=== PATIENT | female | born 1930 | race African-American/Black ===

== ENCOUNTER 2017-10-28 14:25 | Emergency (ER) | payer OTHER ==
[2017-10-28 14:54] LABS: ADD MAN DIFF? NO
[2017-10-28 15:15] LABS: WHITE BLOOD COUNT 9.9 10^3/ul (4.8-10.8)
[2017-10-28 15:15] LABS: ALANINE AMINOTRANSFERASE 33 IU/L (13-69); ALBUMIN 4.2 g/dl (3.3-4.9); ALBUMIN/GLOBULIN RATIO 1.27; ALKALINE PHOSPHATASE 82 IU/L (42-121); ANION GAP 18 (8-16); ASPARTATE AMINO TRANSFERASE 27 IU/L (15-46); BASOPHILS % 0.4 % (0.0-2.0); BILIRUBIN,INDIRECT 1.1 mg/dl (0-1.1); BILIRUBIN,TOTAL 1.1 mg/dl (0.2-1.3); BLOOD UREA NITROGEN 15 mg/dl (7-20); CALCIUM 10.3 mg/dl (8.4-10.2); CARBON DIOXIDE 27 mmol/L (21-31); CHLORIDE 104 mmol/L (97-110); CREATININE 0.93 mg/dl (0.44-1.00); GLUCOSE 155 mg/dl (70-220); HEMATOCRIT 40.7 % (37.0-47.0); HEMOGLOBIN 13.5 g/dl (12.0-16.0); LYMPHOCYTES # 0.9 10^3/ul (0.8-2.9); LYMPHOCYTES % 9.4 % (15.0-51.0); MEAN CORPUSCULAR HEMOGLOBIN 31.8 pg (29.0-33.0); MEAN CORPUSCULAR HGB CONC 33.2 g/dl (32.0-37.0); MEAN CORPUSCULAR VOLUME 95.8 fl (82.0-101.0); MEAN PLATELET VOLUME 12.3 fl (7.4-10.4); MONOCYTE # 0.6 10^3/ul (0.3-0.9); MONOCYTES % 6.2 % (0.0-11.0); NEUTROPHIL # 8.2 10^3/ul (1.6-7.5); NEUTROPHILS % 83.6 % (39.0-77.0); PLATELET COUNT 194 10^3/UL (140-415); POTASSIUM 4.1 mmol/L (3.5-5.1); RED BLOOD COUNT 4.25 10^6/ul (4.20-5.40); RED CELL DISTRIBUTION WIDTH 14.1 % (11.5-14.5); SODIUM 145 mmol/L (135-144); TOTAL PROTEIN 7.5 g/dl (6.1-8.1)
[2017-10-28 15:26] LABS: TROPONIN-I 0.039 ng/ml (0.00-0.12)
[2017-10-28 15:38] LABS: ACETAMINOPHEN < 10.0 ug/ml (10.0-30.0); ETHANOL < 10.0 mg/dl; SALICYLATE < 1.0 mg/dl (5.0-30.0)
[2017-10-28 18:30] LABS: ADD UMIC YES; UR ASCORBIC ACID NEGATIVE (NEGATIVE); UR BACTERIA MANY /HPF (NONE SEEN); UR BILIRUBIN (Dip) NEGATIVE (NEGATIVE); UR BLOOD (Dip) 2+ mg/dL (NEGATIVE); UR CLARITY CLOUDY (CLEAR); UR COLOR AMBER (YELLOW); UR GLUCOSE (Dip) NEGATIVE (NEGATIVE); UR KETONES (Dip) TRACE mg/dL (NEGATIVE); UR LEUKOCYTE ESTERASE (Dip) 3+ Leu/ul (NEGATIVE); UR MUCUS FEW /HPF (NONE SEEN); UR NITRITE (Dip) POSITIVE (NEGATIVE); UR NONSQUAMOUS EPITHELIAL CELL 1 /HPF (NONE SEEN); UR RBC 11 /HPF (0-5); UR SPECIFIC GRAVITY (Dip) 1.016 (1.003-1.030); UR SQUAMOUS EPITHELIAL CELL FEW /HPF (FEW); UR TOTAL PROTEIN (Dip) 1+ mg/dl (NEGATIVE); UR UROBILINOGEN (Dip) 2+ mg/dL (NEGATIVE); UR WBC 52 /HPF (0-5)
[2017-10-28 18:56] LABS: AMPHETAMINE/METHAMPHETAMINE Negative (NEGATIVE)
[2017-10-28 18:59] LABS: BARBITURATES Negative (NEGATIVE); BENZODIAZEPINES Negative (NEGATIVE); COCAINE Negative (NEGATIVE); OPIATES Negative (NEGATIVE)
[2017-10-28 19:16] LABS: CANNABINOIDS Negative (NEGATIVE)
[2017-10-28] MEDS ORDERED: LIDOCAINE 1% (MDV) 20 ML INJ (19:34)
[2017-10-28] MEDS: CEFTRIAXONE 1 GM INJ IM (19:36)
[2017-10-28] MEDS: CEFTRIAXONE 1 GM/50 ML (PMX) 50 ML IVPB (19:48)
== END 2017-10-28 19:50 | disposition short-term general hospital (02) ==
LOC: E/R 19:50
DX: N30.90 Cystitis, unspecified without hematuria (principal); I10 Essential (primary) hypertension; R40.2142 Coma scale, eyes open, spontaneous, at arrival to emergency department; R40.2242 Coma scale, best verbal response, confused conversation, at arrival to emergency department; R40.2362 Coma scale, best motor response, obeys commands, at arrival to emergency department
CPT/HCPCS: 36415; 70450; 71045; 80053; 80306; 80307; 81001; 82962; 84484; 85025; 87086; 93005; 96372; 99285-25

== ENCOUNTER 2018-10-29 16:15 | Emergency (ER) | payer OTHER ==
[2018-10-29] MEDS: ACETAMINOPHEN 500 MG TAB PO (16:29)
[2018-10-29 16:39] LABS: ADD MAN DIFF? NO
[2018-10-29 16:42] LABS: BASOPHILS % 0.8 % (0.0-2.0); EOSINOPHILS # 0.1 10^3/ul (0.0-0.5); EOSINOPHILS % 1.4 % (0.0-7.0); HEMATOCRIT 40.9 % (37.0-47.0); HEMOGLOBIN 13.2 g/dl (12.0-16.0); LYMPHOCYTES # 1.7 10^3/ul (0.8-2.9); LYMPHOCYTES % 33.8 % (15.0-51.0); MEAN CORPUSCULAR HGB CONC 32.3 g/dl (32.0-37.0); MEAN PLATELET VOLUME 11.1 fl (7.4-10.4); MONOCYTE # 0.6 10^3/ul (0.3-0.9); MONOCYTES % 11.7 % (0.0-11.0); NEUTROPHIL # 2.5 10^3/ul (1.6-7.5); NEUTROPHILS % 52.1 % (39.0-77.0); PLATELET COUNT 186 10^3/UL (140-415); RED BLOOD COUNT 4.26 10^6/ul (4.20-5.40); RED CELL DISTRIBUTION WIDTH 14.9 % (11.5-14.5)
[2018-10-29 16:42] LABS: WHITE BLOOD COUNT 4.9 10^3/ul (4.8-10.8)
[2018-10-29 16:58] LABS: ANION GAP 10 (5-13); BLOOD UREA NITROGEN 17 mg/dl (7-20); CALCIUM 10.3 mg/dl (8.4-10.2); CARBON DIOXIDE 29 mmol/L (21-31); CHLORIDE 105 mmol/L (97-110); CREATININE 0.94 mg/dl (0.44-1.00); GLUCOSE 83 mg/dl (70-220); POTASSIUM 4.5 mmol/L (3.5-5.1); SODIUM 144 mmol/L (135-144)
== END 2018-10-29 20:00 | disposition home or self-care (01) ==
LOC: E/R 16:15
DX: R51 Headache (principal); R40.2142 Coma scale, eyes open, spontaneous, at arrival to emergency department; R40.2362 Coma scale, best motor response, obeys commands, at arrival to emergency department; R40.2252 Coma scale, best verbal response, oriented, at arrival to emergency department; I10 Essential (primary) hypertension
CPT/HCPCS: 70450; 80048; 85025; 99284-25

== ENCOUNTER 2018-12-13 22:53 | Inpatient (IN) | payer OTHER ==
[2018-12-13] MEDS: SOD CHLORIDE 0.9% 500 ML IV (23:12)
[2018-12-13] MEDS: morphine 4 MG/ML VIAL IV (23:13)
[2018-12-13] MEDS: ONDANSETRON 4 MG INJ IV (23:13)
[2018-12-13 23:19] LABS: ADD MAN DIFF? NO
[2018-12-13 23:22] LABS: BASOPHILS % 0.4 % (0.0-2.0); EOSINOPHILS # 0.1 10^3/ul (0.0-0.5); EOSINOPHILS % 1.4 % (0.0-7.0); HEMATOCRIT 37.3 % (37.0-47.0); HEMOGLOBIN 11.9 g/dl (12.0-16.0); LYMPHOCYTES # 2.2 10^3/ul (0.8-2.9); LYMPHOCYTES % 30.2 % (15.0-51.0); MEAN CORPUSCULAR HEMOGLOBIN 30.7 pg (29.0-33.0); MEAN CORPUSCULAR HGB CONC 31.9 g/dl (32.0-37.0); MEAN CORPUSCULAR VOLUME 96.4 fl (82.0-101.0); MEAN PLATELET VOLUME 11.1 fl (7.4-10.4); MONOCYTE # 0.6 10^3/ul (0.3-0.9); MONOCYTES % 7.9 % (0.0-11.0); NEUTROPHIL # 4.3 10^3/ul (1.6-7.5); NEUTROPHILS % 59.3 % (39.0-77.0); PLATELET COUNT 175 10^3/UL (140-415); RED BLOOD COUNT 3.87 10^6/ul (4.20-5.40); RED CELL DISTRIBUTION WIDTH 15.6 % (11.5-14.5)
[2018-12-13 23:22] LABS: WHITE BLOOD COUNT 7.2 10^3/ul (4.8-10.8)
[2018-12-13 23:40] LABS: ALANINE AMINOTRANSFERASE 27 IU/L (13-69); ALBUMIN 3.8 g/dl (3.3-4.9); ALBUMIN/GLOBULIN RATIO 1.18; ALKALINE PHOSPHATASE 76 IU/L (42-121); ANION GAP 10 (5-13); ASPARTATE AMINO TRANSFERASE 24 IU/L (15-46); BILIRUBIN,INDIRECT 0.5 mg/dl (0-1.1); BILIRUBIN,TOTAL 0.5 mg/dl (0.2-1.3); BLOOD UREA NITROGEN 14 mg/dl (7-20); CALCIUM 9.8 mg/dl (8.4-10.2); CARBON DIOXIDE 29 mmol/L (21-31); CHLORIDE 105 mmol/L (97-110); CREATININE 0.77 mg/dl (0.44-1.00); GLUCOSE 111 mg/dl (70-220); LIPASE 75 U/L (23-300); POTASSIUM 3.8 mmol/L (3.5-5.1); SODIUM 144 mmol/L (135-144)
[2018-12-13 23:41] LABS: INR 0.98; PARTIAL THROMBOPLASTIN TIME 30.7 Sec (23.0-35.0); PROTIME 13.1 Sec (11.9-14.9)
[2018-12-14] MEDS: HYDROmorphONE 0.5 MG/0.5 ML SYG IV (00:12)
[2018-12-14] MEDS ORDERED: HYDROCODONE/APAP (5/325) TAB PO (05:00)
[2018-12-14] MEDS ORDERED: NACL 0.9% 3 ML SYG IV (05:00)
[2018-12-14] MEDS ORDERED: ACETAMINOPHEN 325 MG TAB PO (05:00)
[2018-12-14] MEDS ORDERED: ALBUTEROL/IPRATROPIUM (NEB) 3 ML AMP HHN (05:00)
[2018-12-14] MEDS ORDERED: ONDANSETRON 4 MG INJ IV (05:00)
[2018-12-14] MEDS: HYDROCODONE/APAP (5/325) TAB PO (07:46)
[2018-12-14] MEDS: HEPARIN 5,000 UNIT/1 ML VIAL SC ×2 (09:15→20:43)
[2018-12-14] MEDS ORDERED: HYDROmorphONE 0.5 MG/0.5 ML SYG IV (09:30)
[2018-12-14] MEDS: hydrALAzine 20 MG INJ IV (14:31)
[2018-12-14] MEDS: KETOROLAC 15 MG INJ IV ×2 (15:15→22:34)
[2018-12-14] MEDS ORDERED: ALPRAZOLAM 0.25 MG TAB PO (16:30)
[2018-12-14 22:04] LABS: CREATINE KINASE 65 IU/L (23-200)
[2018-12-14 22:18] LABS: CK INDEX 1.8; CK-MB 1.16 ng/ml (0.0-2.4); TROPONIN-I 0.025 ng/ml (0.000-0.120)
[2018-12-14] MEDS: ATORVASTATIN 20 MG TAB PO (22:34)
[2018-12-14] MEDS: DONEPEZIL 10 MG TAB PO (22:34)
[2018-12-14] MEDS: AMLODIPINE 5 MG TAB PO (22:34)
[2018-12-15 05:40] LABS: ADD MAN DIFF? NO
[2018-12-15 05:48] LABS: BASOPHIL # 0.1 10^3/ul (0.0-0.1); BASOPHILS % 0.8 % (0.0-2.0); EOSINOPHILS # 0.3 10^3/ul (0.0-0.5); HEMATOCRIT 37.8 % (37.0-47.0); HEMOGLOBIN 12.6 g/dl (12.0-16.0); LYMPHOCYTES # 1.3 10^3/ul (0.8-2.9); LYMPHOCYTES % 20.2 % (15.0-51.0); MEAN CORPUSCULAR HEMOGLOBIN 31.1 pg (29.0-33.0); MEAN CORPUSCULAR HGB CONC 33.3 g/dl (32.0-37.0); MEAN CORPUSCULAR VOLUME 93.3 fl (82.0-101.0); MEAN PLATELET VOLUME 11.3 fl (7.4-10.4); MONOCYTE # 0.7 10^3/ul (0.3-0.9); MONOCYTES % 11.4 % (0.0-11.0); NEUTROPHILS % 63.1 % (39.0-77.0); PLATELET COUNT 172 10^3/UL (140-415); RED BLOOD COUNT 4.05 10^6/ul (4.20-5.40); RED CELL DISTRIBUTION WIDTH 15.3 % (11.5-14.5)
[2018-12-15 05:48] LABS: WHITE BLOOD COUNT 6.3 10^3/ul (4.8-10.8)
[2018-12-15 06:22] LABS: ALANINE AMINOTRANSFERASE 23 IU/L (13-69); ALBUMIN 3.1 g/dl (3.3-4.9); ALBUMIN/GLOBULIN RATIO 1.03; ALKALINE PHOSPHATASE 62 IU/L (42-121); ANION GAP 5 (5-13); ASPARTATE AMINO TRANSFERASE 20 IU/L (15-46); BILIRUBIN,INDIRECT 1.8 mg/dl (0-1.1); BILIRUBIN,TOTAL 1.8 mg/dl (0.2-1.3); BLOOD UREA NITROGEN 21 mg/dl (7-20); CALCIUM 9.5 mg/dl (8.4-10.2); CARBON DIOXIDE 29 mmol/L (21-31); CHLORIDE 104 mmol/L (97-110); GLUCOSE 87 mg/dl (70-220); PHOSPHORUS 3.2 mg/dl (2.5-4.9); POTASSIUM 4.2 mmol/L (3.5-5.1); SODIUM 138 mmol/L (135-144); TOTAL PROTEIN 6.1 g/dl (6.1-8.1)
[2018-12-15] MEDS: HEPARIN 5,000 UNIT/1 ML VIAL SC ×2 (08:40→20:31)
[2018-12-15] MEDS: DONEPEZIL 10 MG TAB PO (08:41)
[2018-12-15] MEDS: AMLODIPINE 5 MG TAB PO (08:42)
[2018-12-15] MEDS: KETOROLAC 15 MG INJ IV (08:49)
[2018-12-15] MEDS ORDERED: DIVALPROEX SPRINKLE 125 MG CAP PO (12:00)
[2018-12-15] MEDS ORDERED: QUETIAPINE 25 MG TAB PO (15:00)
[2018-12-15] MEDS: DIVALPROEX SPRINKLE 125 MG CAP PO (20:26)
[2018-12-15] MEDS: ATORVASTATIN 20 MG TAB PO (20:26)
[2018-12-15] MEDS: OLANZAPINE 5 MG TAB PO (20:26)
[2018-12-15] MEDS: QUETIAPINE 25 MG TAB PO (20:26)
[2018-12-16 06:01] LABS: ADD MAN DIFF? NO
[2018-12-16 06:07] LABS: BASOPHIL # 0.1 10^3/ul (0.0-0.1); BASOPHILS % 0.6 % (0.0-2.0); EOSINOPHILS # 0.3 10^3/ul (0.0-0.5); EOSINOPHILS % 3.3 % (0.0-7.0); HEMATOCRIT 37.5 % (37.0-47.0); HEMOGLOBIN 12.6 g/dl (12.0-16.0); LYMPHOCYTES # 1.7 10^3/ul (0.8-2.9); LYMPHOCYTES % 21.6 % (15.0-51.0); MEAN CORPUSCULAR HEMOGLOBIN 30.5 pg (29.0-33.0); MEAN CORPUSCULAR HGB CONC 33.6 g/dl (32.0-37.0); MEAN CORPUSCULAR VOLUME 90.8 fl (82.0-101.0); MEAN PLATELET VOLUME 11.6 fl (7.4-10.4); MONOCYTES % 12.7 % (0.0-11.0); NEUTROPHIL # 4.9 10^3/ul (1.6-7.5); NEUTROPHILS % 61.4 % (39.0-77.0); PLATELET COUNT 185 10^3/UL (140-415); RED BLOOD COUNT 4.13 10^6/ul (4.20-5.40); RED CELL DISTRIBUTION WIDTH 15.2 % (11.5-14.5)
[2018-12-16 06:21] LABS: ANION GAP 8 (5-13); BLOOD UREA NITROGEN 23 mg/dl (7-20); CALCIUM 9.1 mg/dl (8.4-10.2); CARBON DIOXIDE 26 mmol/L (21-31); CHLORIDE 106 mmol/L (97-110); CREATININE 0.97 mg/dl (0.44-1.00); GLUCOSE 87 mg/dl (70-220); POTASSIUM 4.1 mmol/L (3.5-5.1); SODIUM 140 mmol/L (135-144)
[2018-12-16] MEDS: AMLODIPINE 5 MG TAB PO (08:21)
[2018-12-16] MEDS: DONEPEZIL 10 MG TAB PO (08:21)
[2018-12-16] MEDS: HEPARIN 5,000 UNIT/1 ML VIAL SC ×2 (08:24→20:44)
[2018-12-16] MEDS ORDERED: traMADol 50 MG TAB PO (09:30)
[2018-12-16] MEDS: CHOLECALCIFEROL 2,000 UNIT CAP PO (15:40)
[2018-12-16 19:00] LABS: ADD UMIC NO; UR ASCORBIC ACID 20 mg/dL (NEGATIVE); UR BILIRUBIN (Dip) NEGATIVE (NEGATIVE); UR BLOOD (Dip) NEGATIVE (NEGATIVE); UR CLARITY CLEAR (CLEAR); UR COLOR YELLOW (YELLOW); UR GLUCOSE (Dip) NEGATIVE (NEGATIVE); UR KETONES (Dip) NEGATIVE (NEGATIVE); UR LEUKOCYTE ESTERASE (Dip) NEGATIVE Leu/ul (NEGATIVE); UR NITRITE (Dip) NEGATIVE (NEGATIVE); UR SPECIFIC GRAVITY (Dip) 1.014 (1.003-1.030); UR TOTAL PROTEIN (Dip) NEGATIVE (NEGATIVE); UR UROBILINOGEN (Dip) 2+ mg/dL (NEGATIVE)
[2018-12-16] MEDS: DIVALPROEX SPRINKLE 125 MG CAP PO (20:39)
[2018-12-16] MEDS: QUETIAPINE 25 MG TAB PO (20:39)
[2018-12-16] MEDS: ATORVASTATIN 20 MG TAB PO (20:41)
[2018-12-16] MEDS: OLANZAPINE 5 MG TAB PO (20:41)
[2018-12-17] MEDS: CHOLECALCIFEROL 2,000 UNIT CAP PO (10:57)
[2018-12-17] MEDS: AMLODIPINE 5 MG TAB PO (10:57)
[2018-12-17] MEDS: DONEPEZIL 10 MG TAB PO (10:58)
[2018-12-17] MEDS: HEPARIN 5,000 UNIT/1 ML VIAL SC ×3 (10:59→23:10)
[2018-12-17] MEDS: morphine 2 MG INJ IV (16:55)
[2018-12-17] MEDS: DIVALPROEX SPRINKLE 125 MG CAP PO (22:18)
[2018-12-17] MEDS: QUETIAPINE 25 MG TAB PO (22:18)
[2018-12-17] MEDS: OLANZAPINE 5 MG TAB PO (22:18)
[2018-12-17] MEDS: ATORVASTATIN 20 MG TAB PO (22:18)
[2018-12-18 06:49] LABS: ANION GAP 7 (5-13); BLOOD UREA NITROGEN 16 mg/dl (7-20); CALCIUM 9.4 mg/dl (8.4-10.2); CARBON DIOXIDE 25 mmol/L (21-31); CHLORIDE 107 mmol/L (97-110); GLUCOSE 87 mg/dl (70-220); MAGNESIUM 2.3 mg/dl (1.7-2.5); POTASSIUM 4.4 mmol/L (3.5-5.1); SODIUM 139 mmol/L (135-144)
[2018-12-18] MEDS: HALOPERIDOL 5 MG INJ IV (07:44)
[2018-12-18] MEDS: HEPARIN 5,000 UNIT/1 ML VIAL SC (07:46)
[2018-12-18] MEDS: DONEPEZIL 10 MG TAB PO (10:27)
[2018-12-18] MEDS: AMLODIPINE 5 MG TAB PO (10:29)
[2018-12-18] MEDS: CHOLECALCIFEROL 2,000 UNIT CAP PO (10:30)
[2018-12-18 10:46] LABS: ADD MAN DIFF? NO
[2018-12-18 10:54] LABS: WHITE BLOOD COUNT 7.1 10^3/ul (4.8-10.8)
[2018-12-18 10:54] LABS: BASOPHIL # 0.1 10^3/ul (0.0-0.1); BASOPHILS % 0.7 % (0.0-2.0); EOSINOPHILS # 0.1 10^3/ul (0.0-0.5); EOSINOPHILS % 1.8 % (0.0-7.0); HEMATOCRIT 36.7 % (37.0-47.0); HEMOGLOBIN 12.2 g/dl (12.0-16.0); LYMPHOCYTES # 1.4 10^3/ul (0.8-2.9); LYMPHOCYTES % 19.9 % (15.0-51.0); MEAN CORPUSCULAR HGB CONC 33.2 g/dl (32.0-37.0); MEAN CORPUSCULAR VOLUME 93.4 fl (82.0-101.0); MEAN PLATELET VOLUME 10.6 fl (7.4-10.4); MONOCYTE # 1.2 10^3/ul (0.3-0.9); MONOCYTES % 16.7 % (0.0-11.0); NEUTROPHIL # 4.3 10^3/ul (1.6-7.5); NEUTROPHILS % 60.5 % (39.0-77.0); PLATELET COUNT 263 10^3/UL (140-415); RED BLOOD COUNT 3.93 10^6/ul (4.20-5.40); RED CELL DISTRIBUTION WIDTH 14.8 % (11.5-14.5)
[2018-12-18 11:18] LABS: ANION GAP 7 (5-13); BLOOD UREA NITROGEN 15 mg/dl (7-20); CALCIUM 9.7 mg/dl (8.4-10.2); CARBON DIOXIDE 27 mmol/L (21-31); CHLORIDE 106 mmol/L (97-110); CREATININE 0.86 mg/dl (0.44-1.00); GLUCOSE 89 mg/dl (70-220); POTASSIUM 4.5 mmol/L (3.5-5.1); SODIUM 140 mmol/L (135-144)
[2018-12-18] MEDS: morphine 2 MG INJ IV (17:11)
[2018-12-18] MEDS: OLANZAPINE 5 MG TAB PO (21:36)
[2018-12-18] MEDS: ATORVASTATIN 20 MG TAB PO (21:36)
[2018-12-18] MEDS: DIVALPROEX SPRINKLE 125 MG CAP PO (21:37)
[2018-12-18] MEDS: QUETIAPINE 25 MG TAB PO (21:37)
[2018-12-19] MEDS: DONEPEZIL 10 MG TAB PO (09:00)
[2018-12-19] MEDS: AMLODIPINE 5 MG TAB PO (09:00)
[2018-12-19] MEDS: CHOLECALCIFEROL 2,000 UNIT CAP PO (09:00)
[2018-12-19] MEDS: morphine 2 MG INJ IV (12:01)
[2018-12-19] MEDS ORDERED: METOCLOPRAMIDE 10 MG INJ (15:47)
[2018-12-19] MEDS ORDERED: CEFAZOLIN 1 GM INJ ×2 (15:47→16:56)
[2018-12-19] MEDS ORDERED: morphine SULFATE/PF (10 MG/10 ML) INJ (15:47)
[2018-12-19] MEDS ORDERED: ONDANSETRON 4 MG INJ (15:47)
[2018-12-19] MEDS ORDERED: ROPIVACAINE 0.5 % 30 ML VIAL (15:48)
[2018-12-19] MEDS ORDERED: FENTAnyl 50 MCG/ML VIAL (15:49)
[2018-12-19] MEDS ORDERED: ETOMIDATE 20 MG INJ (16:28)
[2018-12-19] MEDS ORDERED: PROPOFOL 20 ML (16:55)
[2018-12-19] MEDS ORDERED: PHENYLephrine (100 MCG/ML) 5ML SYG (16:56)
[2018-12-19] MEDS ORDERED: EPHEDrine 50 MG INJ (16:56)
[2018-12-19] MEDS: POLYMYXIN/BACITRACIN 1L IRRIG (17:08)
[2018-12-19] MEDS ORDERED: morphine 4 MG/ML VIAL IV (19:00)
[2018-12-19] MEDS ORDERED: HYDROCODONE/APAP (5/325) TAB PO (19:00)
[2018-12-19] MEDS ORDERED: EPHEDrine SULFATE 50 MG/5 ML SYG IV (19:00)
[2018-12-19] MEDS ORDERED: FENTAnyl 50 MCG/ML VIAL IV ×3 (19:00)
[2018-12-19] MEDS ORDERED: ONDANSETRON 4 MG INJ IV (19:00)
[2018-12-19] MEDS ORDERED: HYDROmorphONE 1 MG/5 ML IV SYRINGE IV ×3 (19:00→19:05)
[2018-12-19] MEDS ORDERED: MEPERIDINE 25 MG INJ IV (19:00)
[2018-12-19] MEDS ORDERED: LABETALOL HCL 20MG INJ IV (19:00)
[2018-12-19] MEDS ORDERED: NACL 0.9% 3 ML SYG IV (19:00)
[2018-12-19] MEDS ORDERED: hydrALAzine 20 MG INJ IV (19:00)
[2018-12-19] MEDS: HYDROmorphONE 1 MG/5 ML IV SYRINGE IV (19:14)
[2018-12-19 19:30] LABS: ADD MAN DIFF? NO
[2018-12-19 19:31] LABS: WHITE BLOOD COUNT 10.3 10^3/ul (4.8-10.8)
[2018-12-19 19:31] LABS: BASOPHIL # 0.1 10^3/ul (0.0-0.1); BASOPHILS % 0.5 % (0.0-2.0); EOSINOPHILS # 0.1 10^3/ul (0.0-0.5); EOSINOPHILS % 0.8 % (0.0-7.0); HEMATOCRIT 39.1 % (37.0-47.0); HEMOGLOBIN 12.5 g/dl (12.0-16.0); LYMPHOCYTES # 1.5 10^3/ul (0.8-2.9); LYMPHOCYTES % 14.8 % (15.0-51.0); MEAN CORPUSCULAR HEMOGLOBIN 30.5 pg (29.0-33.0); MEAN CORPUSCULAR VOLUME 95.4 fl (82.0-101.0); MEAN PLATELET VOLUME 10.2 fl (7.4-10.4); MONOCYTE # 1.2 10^3/ul (0.3-0.9); NEUTROPHIL # 7.3 10^3/ul (1.6-7.5); PLATELET COUNT 285 10^3/UL (140-415); RED CELL DISTRIBUTION WIDTH 14.7 % (11.5-14.5)
[2018-12-19 19:48] LABS: ANION GAP 12 (5-13); BLOOD UREA NITROGEN 18 mg/dl (7-20); CALCIUM 9.6 mg/dl (8.4-10.2); CARBON DIOXIDE 26 mmol/L (21-31); CHLORIDE 106 mmol/L (97-110); CREATININE 0.96 mg/dl (0.44-1.00); GLUCOSE 116 mg/dl (70-220); POTASSIUM 4.4 mmol/L (3.5-5.1); SODIUM 144 mmol/L (135-144)
[2018-12-19] MEDS: SOD CHLORIDE 0.9% 1,000 ML IV (20:53)
[2018-12-19] MEDS: ATORVASTATIN 20 MG TAB PO (21:42)
[2018-12-19] MEDS: QUETIAPINE 25 MG TAB PO (21:43)
[2018-12-19] MEDS: DIVALPROEX SPRINKLE 125 MG CAP PO (21:43)
[2018-12-19] MEDS: OLANZAPINE 5 MG TAB PO (21:43)
[2018-12-19] MEDS: CEFAZOLIN 2 GM/50 ML (PMX) 50 ML IVPB (21:47)
[2018-12-20] MEDS: CEFAZOLIN 2 GM/50 ML (PMX) 50 ML IVPB ×2 (05:31→13:50)
[2018-12-20 06:16] LABS: ADD MAN DIFF? NO
[2018-12-20 06:27] LABS: BASOPHILS % 0.2 % (0.0-2.0); EOSINOPHILS % 0.1 % (0.0-7.0); HEMATOCRIT 32.1 % (37.0-47.0); HEMOGLOBIN 10.3 g/dl (12.0-16.0); LYMPHOCYTES # 0.6 10^3/ul (0.8-2.9); LYMPHOCYTES % 6.4 % (15.0-51.0); MEAN CORPUSCULAR HEMOGLOBIN 30.7 pg (29.0-33.0); MEAN CORPUSCULAR HGB CONC 32.1 g/dl (32.0-37.0); MEAN CORPUSCULAR VOLUME 95.8 fl (82.0-101.0); MEAN PLATELET VOLUME 10.9 fl (7.4-10.4); MONOCYTE # 1.5 10^3/ul (0.3-0.9); MONOCYTES % 14.4 % (0.0-11.0); NEUTROPHIL # 7.9 10^3/ul (1.6-7.5); NEUTROPHILS % 78.1 % (39.0-77.0); PLATELET COUNT 222 10^3/UL (140-415); RED BLOOD COUNT 3.35 10^6/ul (4.20-5.40); RED CELL DISTRIBUTION WIDTH 14.9 % (11.5-14.5)
[2018-12-20 06:27] LABS: WHITE BLOOD COUNT 10.1 10^3/ul (4.8-10.8)
[2018-12-20 06:49] LABS: ANION GAP 6 (5-13); BLOOD UREA NITROGEN 20 mg/dl (7-20); CALCIUM 8.9 mg/dl (8.4-10.2); CARBON DIOXIDE 23 mmol/L (21-31); CHLORIDE 112 mmol/L (97-110); CREATININE 0.87 mg/dl (0.44-1.00); GLUCOSE 116 mg/dl (70-220); POTASSIUM 4.7 mmol/L (3.5-5.1); SODIUM 141 mmol/L (135-144)
[2018-12-20] MEDS: SOD CHLORIDE 0.9% 1,000 ML IV ×3 (07:04→19:34)
[2018-12-20] MEDS: DONEPEZIL 10 MG TAB PO ×2 (09:00→09:08)
[2018-12-20] MEDS: CHOLECALCIFEROL 2,000 UNIT CAP PO ×2 (09:00→09:08)
[2018-12-20] MEDS: AMLODIPINE 5 MG TAB PO ×2 (09:00→09:09)
[2018-12-20] MEDS: ENOXAPARIN 40 MG/0.4 ML SYG SC (13:56)
[2018-12-20] MEDS: ATORVASTATIN 20 MG TAB PO (20:11)
[2018-12-20] MEDS: DIVALPROEX SPRINKLE 125 MG CAP PO (20:11)
[2018-12-20] MEDS: QUETIAPINE 25 MG TAB PO (20:11)
[2018-12-20] MEDS: OLANZAPINE 5 MG TAB PO (20:17)
[2018-12-21 05:56] LABS: ADD MAN DIFF? NO
[2018-12-21 06:08] LABS: ABNORMAL IP MESSAGE 1; BASOPHIL # 0.1 10^3/ul (0.0-0.1); BASOPHILS % 0.4 % (0.0-2.0); EOSINOPHILS % 0.1 % (0.0-7.0); HEMATOCRIT 32.3 % (37.0-47.0); HEMOGLOBIN 10.4 g/dl (12.0-16.0); LYMPHOCYTES # 1.1 10^3/ul (0.8-2.9); LYMPHOCYTES % 6.3 % (15.0-51.0); MEAN CORPUSCULAR HEMOGLOBIN 30.7 pg (29.0-33.0); MEAN CORPUSCULAR HGB CONC 32.2 g/dl (32.0-37.0); MEAN CORPUSCULAR VOLUME 95.3 fl (82.0-101.0); MEAN PLATELET VOLUME 10.6 fl (7.4-10.4); MONOCYTE # 2.4 10^3/ul (0.3-0.9); NEUTROPHIL # 13.5 10^3/ul (1.6-7.5); NEUTROPHILS % 78.3 % (39.0-77.0); PLATELET COUNT 273 10^3/UL (140-415); RED BLOOD COUNT 3.39 10^6/ul (4.20-5.40)
[2018-12-21 06:08] LABS: WHITE BLOOD COUNT 17.2 10^3/ul (4.8-10.8)
[2018-12-21 06:23] LABS: POSITIVE DIFF @See below
[2018-12-21 06:29] LABS: ANION GAP 7 (5-13); BLOOD UREA NITROGEN 13 mg/dl (7-20); CALCIUM 9.2 mg/dl (8.4-10.2); CARBON DIOXIDE 25 mmol/L (21-31); CHLORIDE 113 mmol/L (97-110); CREATININE 0.86 mg/dl (0.44-1.00); GLUCOSE 95 mg/dl (70-220); POTASSIUM 4.1 mmol/L (3.5-5.1); SODIUM 145 mmol/L (135-144)
[2018-12-21] MEDS: SOD CHLORIDE 0.9% 1,000 ML IV ×3 (08:40→22:39)
[2018-12-21] MEDS: AMLODIPINE 5 MG TAB PO (08:41)
[2018-12-21] MEDS: DONEPEZIL 10 MG TAB PO (08:41)
[2018-12-21] MEDS: CHOLECALCIFEROL 2,000 UNIT CAP PO (08:41)
[2018-12-21] MEDS: ENOXAPARIN 40 MG/0.4 ML SYG SC (08:44)
[2018-12-21] MEDS: CEFAZOLIN 1 GM/50 ML (PMX) 50 ML IVPB ×2 (12:48→20:23)
[2018-12-21] MEDS: QUETIAPINE 25 MG TAB PO (20:24)
[2018-12-21] MEDS: OLANZAPINE 5 MG TAB PO (20:24)
[2018-12-21] MEDS: ATORVASTATIN 20 MG TAB PO (20:24)
[2018-12-21] MEDS: DIVALPROEX SPRINKLE 125 MG CAP PO (20:24)
[2018-12-22 05:35] LABS: ADD MAN DIFF? NO
[2018-12-22 05:40] LABS: ABNORMAL IP MESSAGE 1; BASOPHIL # 0.1 10^3/ul (0.0-0.1); BASOPHILS % 0.3 % (0.0-2.0); EOSINOPHILS # 0.1 10^3/ul (0.0-0.5); EOSINOPHILS % 0.5 % (0.0-7.0); HEMATOCRIT 29.5 % (37.0-47.0); HEMOGLOBIN 9.4 g/dl (12.0-16.0); LYMPHOCYTES # 1.8 10^3/ul (0.8-2.9); LYMPHOCYTES % 10.7 % (15.0-51.0); MEAN CORPUSCULAR HEMOGLOBIN 30.4 pg (29.0-33.0); MEAN CORPUSCULAR HGB CONC 31.9 g/dl (32.0-37.0); MEAN CORPUSCULAR VOLUME 95.5 fl (82.0-101.0); MEAN PLATELET VOLUME 10.5 fl (7.4-10.4); MONOCYTE # 1.6 10^3/ul (0.3-0.9); MONOCYTES % 9.8 % (0.0-11.0); NEUTROPHIL # 12.7 10^3/ul (1.6-7.5); NEUTROPHILS % 77.8 % (39.0-77.0); PLATELET COUNT 310 10^3/UL (140-415); RED BLOOD COUNT 3.09 10^6/ul (4.20-5.40); RED CELL DISTRIBUTION WIDTH 14.8 % (11.5-14.5)
[2018-12-22 05:40] LABS: WHITE BLOOD COUNT 16.4 10^3/ul (4.8-10.8)
[2018-12-22 06:15] LABS: POSITIVE DIFF @See below
[2018-12-22] MEDS: CEFAZOLIN 1 GM/50 ML (PMX) 50 ML IVPB (09:20)
[2018-12-22] MEDS: DONEPEZIL 10 MG TAB PO (09:21)
[2018-12-22] MEDS: CHOLECALCIFEROL 2,000 UNIT CAP PO (09:21)
[2018-12-22] MEDS: AMLODIPINE 5 MG TAB PO (09:21)
[2018-12-22] MEDS: ENOXAPARIN 40 MG/0.4 ML SYG SC (09:25)
[2018-12-22] MEDS ORDERED: CEFAZOLIN 1 GM/50 ML (PMX) 50 ML IVPB (21:00)
== END 2018-12-22 18:35 | DRG 470 ==
LOC: E/R 22:53 → 2NE 12-14 02:06
PROC: 0SRS0JZ Replacement of Left Hip Joint, Femoral Surface with Synthetic Substitute, Open Approach (ICD-10-PCS; principal; 2018-12-19 16:00)
DX: S72.002A Fracture of unspecified part of neck of left femur, initial encounter for closed fracture (principal); N17.9 Acute kidney failure, unspecified; F02.81 Dementia in other diseases classified elsewhere, unspecified severity, with behavioral disturbance; F05 Delirium due to known physiological condition; J98.11 Atelectasis; W01.0XXA Fall on same level from slipping, tripping and stumbling without subsequent striking against object, initial encounter; E78.5 Hyperlipidemia, unspecified; I10 Essential (primary) hypertension; I27.20 Pulmonary hypertension, unspecified; I70.0 Atherosclerosis of aorta; I65.29 Occlusion and stenosis of unspecified carotid artery; E55.9 Vitamin D deficiency, unspecified; Z86.73 Personal history of transient ischemic attack (TIA), and cerebral infarction without residual deficits; M15.9 Polyosteoarthritis, unspecified; D72.829 Elevated white blood cell count, unspecified
CPT/HCPCS: 36415; 70450; 71045; 72170; 72192; 73500; 73510; 80048; 80053; 81003; 82550; 82553; 82652; 83690; 83735; 84100; 84484; 85025; 85610; 85730; 86850; 86870; 86900; 86901; 86920; 87081; 88305; 88311; 93005; 93306; 96374; 96375; 97110; 97162; 97530; 99285-25